=== PATIENT | male | born 1990 | race American Indian/Alaskan Native ===

== ENCOUNTER 2017-08-14 15:00 | Outpatient (CLI) | payer BC ==
[2017-08-14 19:24] LABS: BASOPHILS # (AUTO) 0.1 10^3/uL (0.0-0.1); BASOPHILS % (AUTO) 1.2 %; EOSINOPHILS # (AUTO) 0.3 10^3/uL (0.0-0.7); EOSINOPHILS % (AUTO) 4.2 %; HCT - HEMATOCRIT 44.4 % (42.0-52.0); LYMPHOCYTES # (AUTO) 1.8 10^3/uL (1.5-3.5); MEAN CORPUSCULAR HEMOGLOBIN 31.6 pg (27.0-31.0); MEAN CORPUSCULAR HGB CONC 33.9 g/dL (32.0-36.0); MEAN CORPUSCULAR VOLUME 93.3 fL (80.0-94.0); MEAN PLATELET VOLUME 7.6 fL (7.4-11.4); MONOCYTES # (AUTO) 0.5 10^3/uL (0.0-1.0); MONOCYTES % (AUTO) 5.9 %; NEUTROPHILS # (AUTO) 4.9 10^3/uL (1.5-6.6); NEUTROPHILS % (AUTO) 64.7 %; NUCLEATED RED BLOOD CELLS AUTO 0.1 /100WBC; RED BLOOD COUNT 4.76 10^6/uL (4.70-6.10); RED CELL DISTRIBUTION WIDTH 12.8 % (12.0-15.0); UNCORRECTED WHITE BLOOD COUNT 7.6 x10^3/uL; WHITE BLOOD COUNT 7.6 x10^3/uL (4.8-10.8)
[2017-08-14 19:40] LABS: ALBUMIN/GLOBULIN RATIO 1.6 (1.0-2.2); BILIRUBIN,TOTAL 0.4 mg/dL (0.2-1.0); CALCIUM 9.8 mg/dL (8.5-10.3); POTASSIUM 3.4 mmol/L (3.5-5.0); TOTAL PROTEIN 8.3 g/dL (6.7-8.2)
== END 2017-08-14 15:01 | disposition home or self-care (01) ==
LOC: LAB.WCP 15:00
PROVIDERS: ATTEND Family Medicine
DX: R30.0 Dysuria (principal)
CPT/HCPCS: 36415; 80053; 85025; 87491; 87591

== ENCOUNTER 2017-09-10 12:00 | Outpatient (CLI) | payer BC ==
[2017-09-12 07:23] LABS: TEST RESULT REPORT
[2017-09-13 11:50] LABS: TEST RESULT REPORT
== END 2017-09-10 12:01 | disposition home or self-care (01) ==
LOC: LAB.WCP 12:00
PROVIDERS: ATTEND Physician Assistant Medical
DX: Z20.2 Contact with and (suspected) exposure to infections with a predominantly sexual mode of transmission (principal); R30.0 Dysuria
CPT/HCPCS: 36415; 81599; 86592; 86695; 86696; 86780; 87086; 87389